=== PATIENT | male | born 1960 | race African-American/Black ===

== ENCOUNTER 2018-08-31 08:35 | Day surgery (SDC) | payer OTHER ==
[2018-08-31] MEDS ORDERED: SEVOFLURANE 250 ML LIQUID IH ONE (08:48)
[2018-08-31] MEDS ORDERED: ePHEDrine SULFATE 50 MG/1 ML IVP ONE (08:48)
[2018-08-31] MEDS ORDERED: SUGAMMADEX SODIUM 200 MG/2 ML VIAL IV ONE (08:48)
[2018-08-31] MEDS ORDERED: ONDANSETRON HCL/PF 4 MG/ 2ML VIAL ONE (08:48)
[2018-08-31] MEDS ORDERED: SCOPOLAMINE HYDROBROMIDE 1.5MG/72HR PATCH TD ONE ×2 (08:48→11:48)
[2018-08-31] MEDS ORDERED: LACTATED RINGERS 1,000 ML IV.SOLN IV ONE ×2 (08:48)
[2018-08-31] MEDS ORDERED: DEXAMETHASONE SOD PHOS 4 MG/ML VIAL ONE (08:48)
[2018-08-31] MEDS ORDERED: PROPOFOL 200 MG/20 ML VIAL IV ONE (08:48)
[2018-08-31] MEDS ORDERED: PHENYLEPHRINE HCL 10 MG/1 ML ONE (08:48)
[2018-08-31] MEDS ORDERED: ROCURONIUM BROMIDE 10 MG/ML 5ML VIAL ONE (08:48)
[2018-08-31] MEDS ORDERED: ceFAZolin SODIUM 1 GM VIAL ONE (08:48)
[2018-08-31] MEDS ORDERED: MIDAZOLAM HCL 2 MG/2 ML VIAL ONE (08:48)
[2018-08-31] MEDS ORDERED: ENOXAPARIN SODIUM 40 MG/0.4 ML DISP.SYRIN SQ ONE ×2 (08:48→11:52)
[2018-08-31] MEDS ORDERED: DEXAMETHASONE SODIUM PHOSPHATE 10 MG/ML VIAL ONE (08:48)
[2018-08-31] MEDS ORDERED: LEVALBUTEROL NEB 1.25 MG/3 ML VIAL.NEB IH ONE ×2 (08:48→11:48)
[2018-08-31] MEDS ORDERED: FAMOTIDINE 20 MG/2 ML VIAL ONE ×2 (08:48→11:48)
[2018-08-31] MEDS ORDERED: LIDOCAINE HCL 2% PF 100MG/5ML VIAL IJ ONE (08:48)
[2018-08-31] MEDS ORDERED: LACTATED RINGERS 1,000 ML IV ONE (11:48)
== END 2018-08-31 16:13 ==
LOC: OPSURG 08:35
PROVIDERS: ATTEND Surgery
DX: E66.01 Morbid (severe) obesity due to excess calories (principal); Z68.44 Body mass index [BMI] 60.0-69.9, adult; M19.90 Unspecified osteoarthritis, unspecified site
CPT/HCPCS: 43235; 43775; 88305; A9270; J0690; J1650; J2001; J2250; J2370; J2405; J2704; J7120; J7614; J1100

== ENCOUNTER 2018-08-31 16:13 | Inpatient (IN) | payer OTHER ==
[2018-08-31] MEDS ORDERED: 0.9 % SODIUM CHLORIDE 1,000 ML IV ONE (16:25)
[2018-08-31] MEDS ORDERED: MORPHINE SULFATE 4 MG/ML VIAL IVP PRN (16:33)
[2018-08-31] MEDS ORDERED: ONDANSETRON HCL/PF 4 MG/ 2ML VIAL IVP PRN (16:33)
[2018-08-31] MEDS ORDERED: KETOROLAC TROMETHAMINE 30 MG/1ML VIAL IVP PRN (16:33)
[2018-08-31] MEDS ORDERED: PROMETHAZINE HCL 25 MG in 0.9 % SODIUM CHLORIDE 50 ML IV PRN (16:33)
[2018-08-31] MEDS ORDERED: 0.9 % SODIUM CHLORIDE 1,000 ML IV SCH (16:45)
[2018-08-31] MEDS: HYDROcodone-ACETAMIN 7.5-325/15ML SOLN UD CUP PO PRN (18:03)
[2018-08-31 19:08] VITALS: BMI 127.6
--- NOTE | 2018-08-31 19:28 | History and Physical Report ---
History of Present Illnes - History of Present Illness Reason for Visit: Weight loss surgery History of Present Illness: Patient underwent sleeve gastrectomy today after failing multiple attempts at weight loss with diet and exercise. Surgery went well. He will be admitted for IV hydration, IV pain control, and IV antiemetics. - Past Medical History Cardiac: HTN, Hyperlipidemia MANAGER IN HOME: Peripheral neuropathy Hepatobiliary: Hep A/B/C (Hepatitis C - s/p treatment 2018) Musculoskeletal: Chronic low back pain, Osteoarthritis Endocrine: Other (A1C 5.8) - Past Surgical History Past Surgical History: Other (Sleeve gastrectomy) - Past Social History Smoke: 1 pack per day Alcohol: None Drugs: None Lives: Alone - Health Maintenance Health Maintenance: Cholesterol, Influenza Vaccine, Pneumococcal Vaccine, Colonoscopy Pneumonia Vaccine: Yes Resuscitation Status: Resusciation Status Resuscitation Status Full Code Review of Systems - Review of Systems Constitutional: negative: Fever Eyes: negative: pain ENT: negative: Ear Pain, Nose Congestion Respiratory: negative: Cough Cardiovascular: negative: Chest Pain Gastrointestinal: negative: Nausea, Vomiting Genitourinary: negative: Dysuria Musculoskeletal: negative: Neck Pain Skin: negative: Rash Neurological: negative: Weakness - Medications/Allergies Allergies/Adverse Reactions: Allergies Allergy/AdvReac Type Severity Reaction Status Date / Time No Known Allergies Allergy Verified 08/31/18 16:42 Home Medications: Home Medications Atorvastatin Calcium 80 mg PO D 08/31/18 Calcium Carbonate [Calcium] 600 mg PO D 08/31/18 Diclofenac Sodium 75 mg PO D PRN 08/31/18 Gabapentin [Neurontin] 300 mg PO 5XDAY 08/31/18 Multivitamin [One Daily Essential] 1 each PO D 08/31/18 Tizanidine HCl [Zanaflex] 4 mg PO TID 08/31/18 amLODIPine BESYLATE [Norvasc] 10 mg PO 0900 08/31/18 Current Inpatient Medications: Current Inpatient Medications Cefazolin Sodium/Dextrose (Ancef 1 Gm/50 Ml-Dextrose) 1 gm IV Q8H MICHAEL Stop: 09/01/18 06:31 Enoxaparin Sodium (Lovenox) 40 mg SQ DAILY MICHAEL Stop: 09/15/18 13:59 Famotidine (Pepcid) 20 mg IVP BID MICHAEL Stop: 09/04/18 20:59 Sodium Chloride (Normal Saline) 1,000 mls @ 150 mls/hr IV Q8H MICHAEL Last Admin: 08/31/18 16:47 Dose: 150 mls/hr Promethazine HCl 25 mg/ Sodium (Chloride) 51 mls @ 200 mls/hr IV Q6 PRN PRN Reason: Nausea / Vomiting Stop: 09/04/18 16:32 Ketorolac Tromethamine (Toradol) 30 mg IVP Q6 PRN PRN Reason: For Mild Pain Stop: 09/04/18 16:32 Last Admin: 08/31/18 17:22 Dose: 30 mg Morphine Sulfate (Morphine Sulfate) 2 mg IVP Q2 PRN PRN Reason: MODERATE PAIN Stop: 09/04/18 16:32 Ondansetron HCl (Zofran) 4 mg IVP Q6H PRN PRN Reason: Nausea / Vomiting Stop: 09/04/18 16:32 Exam - Exam Vital Signs: Vital Signs (72 hours) 08/31/18 08/31/18 08/31/18 16:33 16:37 18:00 Temperature 97.3 F L 98.2 F Pulse Rate 78 Pulse Rate [ 85 100 H Right] Respiratory 20 22 Rate Blood Pressure 168/98 145/90 [Right Arm] O2 Sat by Pulse 94 94 95 Oximetry General: Alert, Oriented to Person, Oriented to Place, Oriented to Time, Cooperative, No acute distress, Morbidly Obese HEENT: Atraumatic, PERRLA, EOMI, Mouth Mucous membr. moist/[place], Nose Mucous membr. moist/[place] Neck: Normal Range of Motion Lungs: Clear to auscultation, Normal air movement, Speaks full Sentences Cardiovascular: Regular rate Abdomen: Soft, No tenderness, Other (BAndages C/D/I), Decreased Bowel Sounds Integumentary: Normal Extremities: No edema Neurological: Normal gait, Normal speech, Strength Equal Bilat Psych/Mental Status: Mental status NL, Mood NL, Appropriate Affect, Intact Judgment Assessment/Plan - Assessment/Plan (1) S/P laparoscopic sleeve gastrectomy Status: Acute Current Visit: Yes Plan: Plan to admit for IV hydration, IV pain meds, and IV antiemetics. Lovenox, SCD's, IS and frequent ambulation will be used. STart ice chips and advance diet as tolerated. (2) HTN (hypertension) Status: Chronic Current Visit: Yes Qualifiers: Hypertension type: essential hypertension Qualified Code(s): I10 - Essential (primary) hypertension Plan: Will hold amlodipine for now. Watch BP. (3) Chronic back pain Status: Chronic Current Visit: Yes Qualifiers: Back pain location: low back pain Back pain laterality: midline Sciatica presence: unspecified whether sciatica present Qualified Code(s): M54.5 - Low back pain; G89.29 - Other chronic pain Plan: Will need to stop diclofenac. Continue neurontin and tizanadine. May need K pad. (4) Neuropathy Status: Chronic Current Visit: No (5) HLD (hyperlipidemia) Status: Chronic Current Visit: No Qualifiers: Hyperlipidemia type: mixed hyperlipidemia Qualified Code(s): E78.2 - Mixed hyperlipidemia Plan: Resume lipitor on discharge. VTE Assessment - RISK FACTOR SCORE VTE RISK FACTOR SCORES: AGE 40-60 YEARS, OBESITY, MAJOR SURGERY/ANESTHESIA TIME > 1 HOUR - RISK VTE HIGH RISK: SCORE OF 3-4 (RISK PROXIMAL DVT 4-8%) PROPHYLAXIS NEEDED
[2018-08-31] MEDS: GABAPENTIN 300 MG CAPSULE PO SCH ×2 (20:00→22:02)
[2018-08-31] MEDS ORDERED: TIZANIDINE HCL 4 MG TABLET PO PRN (20:29)
[2018-08-31] MEDS: FAMOTIDINE 20 MG/2 ML VIAL IVP SCH (21:58)
[2018-09-01] MEDS: HYDROcodone-ACETAMIN 7.5-325/15ML SOLN UD CUP PO PRN (03:26)
[2018-09-01] MEDS: GABAPENTIN 300 MG CAPSULE PO SCH ×5 (06:29→20:26)
[2018-09-01] MEDS: FAMOTIDINE 20 MG/2 ML VIAL IVP SCH ×2 (09:25→20:26)
--- NOTE | 2018-09-01 10:48 | Inpatient Progress Note ---
Subjective - Required Recertification Statement I anticipate X number of days because-include discharge plan: 1 - Review of Systems Events since last encounter: Zeferino is POD #1 s/p gastric sleeve. He is ambulating well. We discussed the need to follow the recommended diet and not to go any faster than recommended. His pain is well controlled. General: Denies: Chills HEENT: Denies: Head Aches Pulmonary: Denies: Dyspnea Cardiovascular: Denies: Chest Pain Gastrointestinal: Abdominal Pain (mlld). Denies: Nausea, Vomiting Genitourinary: Denies: Dysuria Musculoskeletal: Denies: Neck Pain Neurological: Denies: Weakness, Numbness, Incoordination Objective - Exam Vitals and I&O: Vital Signs Temp 99.3 F 09/01/18 09:22 Pulse 101 H 09/01/18 09:22 Resp 18 09/01/18 09:52 BP 156/93 09/01/18 09:22 Pulse Ox 98 09/01/18 09:47 Intake & Output 08/31/18 08/31/18 09/01/18 11:59 23:59 11:59 Intake Total 900 240 Output Total 250 200 Balance 650 40 Weight 177.863 kg Intake: IV 900 Left Hand 900 Oral 240 Output: Urine 250 200 Other: Voiding Method Urinal Urinal # Voids 1 # Bowel Movements 0 General: Alert, Oriented to Person, Oriented to Place, Morbidly Obese HEENT: Atraumatic, PERRLA, EOMI Neck: Supple, No JVD Lungs: Clear to auscultation, Normal air movement Cardiovascular: Regular rate Abdomen: Normal bowel sounds, Soft, Other (Minimal tenderness) Extremities: No clubbing, No cyanosis, No edema Skin: Normal, Warm, Dry Neurological: Normal speech Psych/Mental Status: Mental status NL Assessment/Plan - Assessment/Plan (1) S/P laparoscopic sleeve gastrectomy Status: Acute Current Visit: Yes Assessment: Ambulate Advance diet per recommendations D/C to home tomorrow (2) Chronic back pain Status: Chronic Current Visit: Yes Qualifiers: Back pain location: low back pain Back pain laterality: midline Sciatica presence: unspecified whether sciatica present Qualified Code(s): M54.5 - Low back pain; G89.29 - Other chronic pain Assessment: Continue current pain medications (3) HTN (hypertension) Status: Chronic Current Visit: Yes Qualifiers: Hypertension type: essential hypertension Qualified Code(s): I10 - Essential (primary) hypertension Assessment: BP is back up, will restart his amlodipine (4) HLD (hyperlipidemia) Status: Chronic Current Visit: No Qualifiers: Hyperlipidemia type: mixed hyperlipidemia Qualified Code(s): E78.2 - Mixed hyperlipidemia Assessment: Chronic, stable (5) Neuropathy Status: Chronic Current Visit: No
[2018-09-01 12:13] LABS: MEAN CORPUSCULAR HEMOGLOBIN 30.2 pg (28.0-34.0)
[2018-09-01] MEDS: amLODIPine BESYLATE 5 MG TABLET PO SCH (12:37)
[2018-09-01] MEDS: ENOXAPARIN SODIUM 40 MG/0.4 ML DISP.SYRIN SQ SCH (14:03)
[2018-09-01] MEDS ORDERED: MAG HYDROX/ALUMINUM HYD/SIMETH 30 ML UDC PO ONE ×3 (14:41→17:25)
[2018-09-02] MEDS: GABAPENTIN 300 MG CAPSULE PO SCH (05:15)
--- NOTE | 2018-09-02 07:49 | Discharge Summary ---
Discharge Summary - Discharge Sumary History of Present Illness: Patient underwent sleeve gastrectomy today after failing multiple attempts at weight loss with diet and exercise. Surgery went well. He will be admitted for IV hydration, IV pain control, and IV antiemetics. Condition at Discharge: Stable Home Medications: Ambulatory Orders Medication Instructions Recorded Atorvastatin Calcium 80 mg PO D 08/31/18 Calcium Carbonate [Calcium] 600 mg PO D 08/31/18 Diclofenac Sodium 75 mg PO D PRN 08/31/18 Gabapentin [Neurontin] 300 mg PO 5XDAY 08/31/18 Multivitamin [One Daily Essential] 1 each PO D 08/31/18 Tizanidine HCl [Zanaflex] 4 mg PO TID 08/31/18 amLODIPine BESYLATE [Norvasc] 10 mg PO 0900 08/31/18 Consultations this Visit: None Procedures this Visit: Other (S/P Gastric Sleeve) Allergies/Adverse Reactions: Allergies Allergy/AdvReac Type Severity Reaction Status Date / Time No Known Allergies Allergy Verified 08/31/18 16:42 Discharge Summary: Patient is a 58-year-old black male that underwent the gastric sleeve procedure and has done very well. According to staff he has been somewhat difficult with following instructions however, he has been cooperative with his care by ambulating frequently, using his incentive spirometer, and wearing his SCDs while in bed. He has been compliant with his diet during hospitalization. He is having minimal discomfort at this time and minimal nausea- he has been passing gas and belching, he is voiding on his own. He is aware of discharge instructions and what he can and cannot do post surgical- he is aware of the strict diet he must follow to decrease discomfort and have success after procedure. He has family support and significant other will be taking him home- medications written by surgeon given to patient. Hospital Course: Patient received IV pain meds, antiemetics, and IVFs- he has transitioned to oral treatment- he has been ambulating and using incentive spirometer - Final Diagnosis (1) S/P laparoscopic sleeve gastrectomy Problems: Incision is without redness or drainage, positive bowel sounds, minimal abdominal discomfort, patient is belching and flatus Right or Left: Right (2) Chronic back pain Problems: Continue neurontin and tizanadine. May need use heating pad at home. Right or Left: Right (3) HLD (hyperlipidemia) Problems: Resume home medication Right or Left: Right (4) HTN (hypertension) Problems: Take blood pressure daily- keep log and take to follow up appointment Right or Left: Right (5) Neuropathy Problems: Stable Right or Left: Right
[2018-09-02] MEDS: FAMOTIDINE 20 MG/2 ML VIAL IVP SCH (08:26)
[2018-09-02] MEDS: amLODIPine BESYLATE 5 MG TABLET PO SCH (08:26)
[2018-09-02] MEDS: ENOXAPARIN SODIUM 40 MG/0.4 ML DISP.SYRIN SQ SCH (08:27)
[2018-09-02 08:37] VITALS: BP 127/65
[2018-09-02] MEDS ORDERED: POLYETHYLENE GLYCOL 3350 17 GM POWD.PACK PO ONE (12:10)
== END 2018-09-02 10:00 | disposition home or self-care (01) | DRG 948 ==
LOC: SOUTH 16:13
PROVIDERS: ADMIT Nurse Practitioner Family; ATTEND Nurse Practitioner Family
DX: G89.18 Other acute postprocedural pain (principal); E66.01 Morbid (severe) obesity due to excess calories; I10 Essential (primary) hypertension; E78.2 Mixed hyperlipidemia; M54.5 Low back pain; F17.210 Nicotine dependence, cigarettes, uncomplicated
CPT/HCPCS: 36415; 85027; 97161; 97165; A9270; J1650; J1885; J2270; J2405; J7030; S0028; 99222; 99231; 99238